=== PATIENT | female | born 1995 | race African-American/Black ===

== ENCOUNTER 2021-12-29 18:12 | Emergency (ER) | payer MEDICAID ==
[~2021-12-29] VITALS: Ht 167.6 cm; Wt 89.0 kg
[2021-12-29 18:20] VITALS: BP 113/69
[2021-12-29] MEDS ORDERED: CEPHALEXIN 250MG CAPSULE PO ONE (19:15)
[2021-12-29] MEDS ORDERED: SULFAMETHOXAZOLE/TRIMETHOPRIM 800/160MG TABLET PO ONE (19:15)
[2021-12-29] MEDS ORDERED: IBUP-2029 MT (19:18)
[2021-12-29] MEDS ORDERED: IBUPROFEN 600MG TABLET PO ONE (19:30)
== END 2021-12-29 19:36 | disposition home or self-care (01) ==
LOC: ER 18:12
DX: N76.2 Acute vulvitis (principal); J45.909 Unspecified asthma, uncomplicated
CPT/HCPCS: 81025; 99282

== ENCOUNTER 2022-12-24 15:26 | Emergency (ER) | payer MEDICAID ==
[~2022-12-24] VITALS: Ht 157.5 cm; Wt 65.0 kg
[~2022-12-24 15:26] MED LIST: IBUP-2029 MT
[2022-12-24 15:36] VITALS: BP 114/73; PULSE 92; RESP 16; TEMP 98.5; O2SAT 100
[2022-12-24] MEDS ORDERED: BENZ11.95 TOP (17:01)
[2022-12-24] MEDS ORDERED: IBUP-2029 MT (17:01)
== END 2022-12-24 17:30 | disposition home or self-care (01) ==
LOC: ER 15:26
DX: J02.9 Acute pharyngitis, unspecified (principal); R21 Rash and other nonspecific skin eruption; K08.89 Other specified disorders of teeth and supporting structures; J45.909 Unspecified asthma, uncomplicated
CPT/HCPCS: 81025; 99282

== ENCOUNTER 2023-08-05 11:17 | Emergency (ER) | payer MEDICAID, OTHER ==
[~2023-08-05] VITALS: Ht 165.1 cm; Wt 79.0 kg
[~2023-08-05 11:17] MED LIST changes: +BENZ11.95 TOP
[2023-08-05 11:29] VITALS: O2SAT 98
[2023-08-05] MEDS: ACETAMINOPHEN 325MG TABLET PO ONE (13:30)
[2023-08-05] MEDS ORDERED: ACET325T52 MT (14:14)
[2023-08-05 15:10] VITALS: BP 128/97; PULSE 85; RESP 20; TEMP 98.1
== END 2023-08-05 15:43 | disposition home or self-care (01) ==
LOC: ER 11:17
DX: S60.211A Contusion of right wrist, initial encounter (principal); J45.909 Unspecified asthma, uncomplicated; W20.8XXA Other cause of strike by thrown, projected or falling object, initial encounter; Y93.89 Activity, other specified; Y92.89 Other specified places as the place of occurrence of the external cause; Y99.8 Other external cause status
CPT/HCPCS: 73110; 99283

== ENCOUNTER 2024-07-13 13:28 | Emergency (ER) | payer MEDICAID ==
[~2024-07-13] VITALS: Ht 157.5 cm; Wt 77.0 kg
[~2024-07-13 13:28] MED LIST changes: +ACET-3800 MT
[2024-07-13 13:50] VITALS: BP 123/87; PULSE 79; RESP 16; TEMP 37; O2SAT 100
== END 2024-07-13 14:41 | disposition left against medical advice (07) ==
LOC: ER 13:28
DX: M79.643 Pain in unspecified hand (principal); Z53.21 Procedure and treatment not carried out due to patient leaving prior to being seen by health care provider